=== PATIENT | female | born 1995 | race Caucasian/White ===

== ENCOUNTER 2016-12-22 20:19 | Emergency (ER) | payer OTHER | END 2016-12-23 00:25 | disposition home or self-care (01) | LOC: ER1 20:19 | DX: S60.221A Contusion of right hand, initial encounter (principal); Z88.0 Allergy status to penicillin; W22.8XXA Striking against or struck by other objects, initial encounter | CPT/HCPCS: 29125; 73090; 73110; 73130; 99283 ==

== ENCOUNTER 2017-01-25 20:47 | Emergency (ER) | payer OTHER | END 2017-01-25 22:05 | disposition home or self-care (01) | LOC: ER1 20:47 | DX: S63.91XA Sprain of unspecified part of right wrist and hand, initial encounter (principal); Z88.0 Allergy status to penicillin; W50.0XXA Accidental hit or strike by another person, initial encounter | CPT/HCPCS: 29125; 73130; 99283 ==

== ENCOUNTER 2021-07-18 21:04 | Emergency (ER) | payer OTHER ==
[~2021-07-18 21:04] MED LIST: MACROBID 100 M100 MG PO; PYRIDIUM100 MG PO
[2021-07-18] MEDS ORDERED: IBUPROFEN600 MG PO (22:19)
== END 2021-07-18 22:21 | disposition home or self-care (01) ==
LOC: ER1 21:04
DX: S60.512A Abrasion of left hand, initial encounter (principal); Z88.0 Allergy status to penicillin; Y04.2XXA Assault by strike against or bumped into by another person, initial encounter
CPT/HCPCS: 70450; 70486; 99284